=== PATIENT | male | born 1940 | race Caucasian/White ===

== ENCOUNTER 2020-01-06 13:40 | Emergency (ER) | payer MEDICARE, BC, SELFPAY ==
[2020-01-06 13:27] VITALS: BMI 27.5
[2020-01-06 13:41] VITALS: BP 155/90; PULSE 86; RESP 17; TEMP 36.1; O2SAT 97; BMI 27.5
--- NOTE | 2020-01-06 13:51 | VDLE_ITS ---
Reason For Study: swelling Procedure LEFT Exam performed portable in ED. GSV is normal. The exam was abbreviated due to the COVID 19 CFV is compressible, spontaneous, phasic, protocol. competent, and demonstrates normal The exam was diagnostic. augmentation. A preliminary report was called and/or faxed FV is compressible, spontaneous, phasic, to Dr. Isabel. competent and demonstrates normal augmentation. POP V is compressible, spontaneous, phasic, competent and demonstrates normal augmentation. T/P Trunk is compressible. PTV is compressible. LT PerV is compressible. Interpretation Summary There is no evidence of left lower extremity deep vein thrombosis. Left great saphenous vein appears patent and compressible segmentally. Ordering Physician: Dirk Isabel Performed By: Chinedu Browning RVT
--- NOTE | 2020-01-06 13:52 | ED.DCSUM_ITS ---
History of Present Illness Chief Complaint: Lower Extremity Injury Informant: Patient Onset: Days Context: Sudden Onset Timing: Continuous Quality: Swelling and discoloration Location: Left lower extremity Current Severity: Moderate Maximum Severity: Moderate Worsened by: Nothing Relieved by: Nothing Associated Symptoms: Concern for worsening renal failure Narrative: Patient is a elderly male with both medical problems including PE and DVT p resently on Coumadin who presents because of swelling in the left lower extremity with discoloration. He states he is compliant with his medications. He denies fever, chills night sweats. He denies headache, ocular, visual auditory symptoms. He denies upper respiratory symptoms. He denies cardiac symptoms. He denies GI symptoms. He does report generalized weakness. Prior similar symptoms: Yes - DVT Recent Illness/Hospitalization: No - Past Medical History (1) End stage renal disease Status: Chronic (2) Hypertension Status: Chronic (3) Type 2 diabetes mellitus Status: Chronic (4) Dyslipidemia Status: Chronic (5) Pulmonary embolus Status: Resolved (6) Deep venous thrombosis Status: Resolved Past Medical History - Allergies and Home Meds Allergies/Adverse Reactions: Allergies No Known Allergies Allergy (Verified 01/06/20 13:11) Primary Care Physician: Chuy Oliveira,Out of [NON-STAFF] - Prior records reviewed: Yes Lives: Spouse/ Significant Other Smoking Status: Never smoker Alcohol: None Drugs: None Review of Systems General: Denies: Chills, Fever, Sweats Eyes: Denies: Visual changes - bilaterally ENT: Denies: Rhinorrhea, Sore throat Cardiovascular: Denies: Chest pain, Palpitations Respiratory: Denies: Dyspnea, Cough, Dyspnea on exertion, Orthopnea Gastrointestinal: Denies: Abdominal pain, Nausea, Vomiting, Diarrhea, Melena, Hematochezia Genitourinary: Denies: Dysuria, Hematuria, Frequency Musculoskeletal: Reports: Swelling, Extremity Pain. Denies: Myalgias, Arthralgias, Neck pain, Back pain, -, - Skin: Denies: Rash, Wounds Neurological: Denies: Headache, Weakness, Numbness Endocrine: Denies: Polyuria, Polydipsia Hematologic: Denies: Easy bruising, Easy bleeding Physical Exam Vital Signs/Narrative: Vital Signs Temp Pulse Resp BP Pulse Ox 01/06/20 13:41 96.9 F L 86 17 155/90 H 97 Inital Vital Signs reviewed: Yes General: Well nourished, Well developed, Obese - Patient has truncal obesity, No Acute Distress Head: Normocephalic, Atraumatic Eyes: Perrl, EOMI. Negative for: Pale conjunctiva, Scleral icterus ENT: Moist mucous membranes, No rhinorrhea Neck: Supple, Nontender, No lymphadenopathy, No JVD Cardiovascular: Regular rate, Regular rhythm, No murmurs, Normal S1, Normal S2 Respiratory: No distress, CTA bilaterally, Chest nontender Abdomen: Soft, Nontender, Nondistended, Normal bowel sounds Back: Nontender, Normal Inspection Extremities: Nontender, Edema, Calf Tenderness, - - And has unilateral lower extremity swelling with discoloration. Well score is 3. Skin: Normal color, No rash Neurological: Alert, Oriented x3, Cranial nerves II-XII grossly intact, Normal Strength, Normal Sensation. Negative for: Normal Gait Psychological: Normal affect, Normal Mood Diagnostic/Tx/Re-eval Laboratory Results 01/06/20 01/06/20 01/06/20 14:07 14:07 14:07 WBC 6.3 RBC 4.64 Hgb 14.2 Hct 43.7 MCV 94.2 H MCH 30.6 MCHC 32.5 RDW Std Deviation 46.5 H RDW Coeff of Skip 13.5 Plt Count 190 MPV 10.7 Immature Gran % (Auto) 0.300 Neut % (Auto) 51.9 Lymph % (Auto) 29.1 [place] % (Auto) 12.3 H Eos % (Auto) 5.1 H Baso % (Auto) 1.3 H Absolute Neuts (auto) 3.2 Absolute Lymphs (auto) 1.82 Nucleated RBC % 0 PT 36.0 H INR 3.6 H* Sodium 140 Potassium 4.1 Chloride 111 H Carbon Dioxide 26.0 Anion Gap 3 L BUN 22 H Creatinine 1.13 Estim Creat Clear Calc 65.43 Est GFR (MDRD) Af Amer 81 Est GFR (MDRD) Non-Af 67 BUN/Creatinine Ratio 19.5 Glucose 104 Calcium 8.5 I was informed the venous duplex study was negative. Is to discharge to home with appropriate home-going instructions. - Medical Decision Making This may represent unilateral lymphedema secondary to decreased mobility versus DVT versus obstructive pathology in the abdomen or pelvis. Will obtain basic metabolic panel to assess electrolytes and renal function. Patient does appear pale will obtain CBC to assess for anemia. Patient is on Coumadin PT/INR was obtained to determine if he is therapeutic or not. ED Disposition - Plan for ED Patient: Disposition: Home or Assisted Living Diagnosis: Lymphedema of left lower extremity, Type 2 diabetes mellitus, Dyslipidemia Instructions: ED Lymphedema Referrals: Town Doctor,Out of [NON-STAFF] - As Needed
[2020-01-06 14:14] LABS: Absolute Lymphocyte Count 1.82 X10^3/uL (0.83-4.51); Absolute Neutrophil Count 3.2 X10^3/uL (2.0-7.7); Basophil# 0.08 X10^3/uL; Basophil% 1.3 % (0-1); Eosinophil# 0.32 X10^3/uL; Eosinophils% 5.1 % (0-5); Hematocrit 43.7 % (40-54); Hemoglobin 14.2 g/dL (13.0-16.5); Lymphocyte # 1.82 X10^3/ul (4.0); Lymphocyte % 29.1 % (19-41); Mean Corp Hgb Conc 32.5 g/dL (32-36); Mean Corpuscular Hgb 30.6 pg (27.0-32.0); Mean Corpuscular Volume 94.2 fL (80-94); Mean Platelet Vol. 10.7 fl (6.2-12.0); Monocyte# 0.77 X10^3/uL; Monocyte% 12.3 % (0-10); NRBC Flagged by Analyzer 0 % (0-5); Neutrophil # 3.24 X10^3/uL (2.7-7.7); Neutrophil % 51.9 % (47-70); Platelet Count 190 K/mm3 (150-450); RBC Distribution Width CV 13.5 % (11.6-14.6); RBC Distribution Width SD 46.5 fl (35.1-43.9); Red Blood Count 4.64 M/mm3 (4.6-6.2); White Blood Count 6.3 K/mm3 (4.4-11.0)
[2020-01-06 14:24] LABS: International Normalized Ratio 3.6
[2020-01-06 14:26] LABS: Anion Gap 3 (5-15); BUN 22 mg/dL (7-18); BUN/Creat Ratio 19.5 RATIO (10-20); Calcium,Total 8.5 mg/dL (8.5-10.1); Chloride 111 mmol/L (98-107); Creatinine, Serum 1.13 mg/dL (0.70-1.30); EST Glomerular Filtration Rate 67 mL/min (>60); Est Glom Filt Rate - Afr Amer 81 mL/min (>60); Estimated Creatinine Clearance 65.43 ml/min; Glucose 104 mg/dL (74-106); Potassium 4.1 mmol/L (3.5-5.1); Sodium Level 140 mmol/L (136-145)
[2020-01-06 14:55] VITALS: BP 165/90; PULSE 73; RESP 16; O2SAT 96
== END 2020-01-06 14:56 | disposition home or self-care (01) ==
PROVIDERS: Emergency Provider Emergency Medicine
DX: I89.0 Lymphedema, not elsewhere classified (principal); E11.9 Type 2 diabetes mellitus without complications; E78.5 Hyperlipidemia, unspecified; E66.9 Obesity, unspecified; Z79.01 Long term (current) use of anticoagulants
CPT/HCPCS: 80048; 85025; 85610; 93971; 99284; A4216